=== PATIENT | female | born 1950 | race Caucasian/White ===

== ENCOUNTER 2017-01-10 09:26 | Emergency (ER) | payer OTHER ==
[2017-01-10 09:38] VITALS: RESP 18; TEMP 97.9
[2017-01-10] MEDS ORDERED: TDAP ADULT 0.5 ML INJ (BOOSTRIX) IM ONE (10:00)
[2017-01-10 10:28] VITALS: PULSE 82
--- NOTE | 2017-01-10 10:54 | EDPHY ---
H & P Stated Complaint: mechanical fall, head laceration Time Seen by Provider: 01/10/17 09:51 HPI/ROS: CHIEF COMPLAINT: scalp laceration HISTORY OF PRESENT ILLNESS: 66-year-old female presents emergency department with a laceration to the back of her head. Patient was leaning on a table reaching up cleaning the top of the Fridge when she tripped and fell backwards onto the concrete. She denies loss of consciousness, remembers the entire accident, denies neck pain. Patient reports a mild headache where the laceration is, mild nausea. She reports feeling foggy. She denies vomiting, no confusion, no blurred vision. Tetanus is not up-to-date. Patient takes blood pressure medication and a baby aspirin daily, she takes no other anti coagulant. Daughter at bedside reports she is acting appropriate. REVIEW OF SYSTEMS: A comprehensive 10 point review of systems is otherwise negative aside from elements mentioned in the history of present illness. Source: Patient Exam Limitations: No limitations - Personal History Current Tetanus/Diphtheria Vaccine: No Current Tetanus Diphtheria and Acellular Pertussis (TDAP): No - Medical/Surgical History Hx Asthma: No Hx Chronic Respiratory Disease: No Hx Diabetes: No Hx Cardiac Disease: No Hx Renal Disease: No Hx Cirrhosis: No Hx Alcoholism: No Hx HIV/AIDS: No Hx Splenectomy or Spleen Trauma: No Other PMH: HTN, Hyperlipidemia - Social History Smoking Status: Former smoker - Physical Exam Exam: Physical Exam Gen: Alert and Oriented, NAD HEENT: PERRL, moist mucous membranes NECK: no meningismus CV: regular rate and regular rhythm PULM: CTAB, no wheezes ABDOMEN: soft, non tender to palpation, BS present BACK: No CVA tenderness NEURO: Neurologically grossly intact, normal cerebellar exam, normal finger- nose, normal [id number], normal gait. EXTREMITIES: normal appearing SKIN: 3 cm superficial laceration to posterior occiput PSYCH: answers questions appropriately. Constitutional: Initial Vital Signs Temperature (C) 36.6 C 01/10/17 09:36 Heart Rate 89 01/10/17 09:36 Respiratory Rate 18 01/10/17 09:36 Blood Pressure 133/83 H 01/10/17 09:36 O2 Sat (%) 88 L 01/10/17 09:36 O2 Delivery Mode Room Air O2 (L/minute) 2 Allergies/Adverse Reactions: No Known Allergies Allergy (Unverified 01/10/17 09:36) Home Medications: Medication Instructions Recorded Lipitor 01/10/17 Medical Decision Making Procedures: Procedure: Laceration repair. Verbal consent was obtained from the patient. The 3 cm laceration on the scalp was anesthetized using 1% lidocaine with epinephrine mixed with 0.5% bupivacaine with epinephrine. The wound was carefully irrigated by the emergency department clinical technician. Next, the wound was prepped and draped in sterile fashion and explored to its base with a gloved finger. There were no deep structures involved. No vascular injury was identified. No foreign bodies were identified. The wound was repaired with 7. Bryon. The wound repair was simple. The procedure was performed by myself. Tetanus and antibiotic status were addressed. ED Course/Re-evaluation: This patient presents after a minor head injury with mild headache, no amnesia or LOC.] Neurologic exam normal. No indication for neuro imaging. CHI precautions given. Differential Diagnosis: The differential diagnosis for the patient's head injury included but was not limited to concussion, skull fracture, intra-parenchymal contusion, subarachnoid , subdural and epidural hematoma. - Data Points Medications Given: Discontinued Medications Diphtheria/Tetanus/Acell Pertussis (Boostrix) 0.5 ml IM .ONCE ONE Stop: 01/10/17 10:01 Last Admin: 01/10/17 10:04 Dose: 0.5 ml Departure - Departure Disposition: Home, Routine, Self-Care Clinical Impression: Occipital scalp laceration Qualifiers: Encounter type: initial encounter Qualified Code(s): S01.01XA - Laceration without foreign body of scalp, initial encounter Minor head injury without loss of consciousness Qualifiers: Encounter type: initial encounter Qualified Code(s): S09.90XA - Unspecified injury of head, initial encounter Concussion Qualifiers: Encounter type: initial encounter Loss of consciousness presence/duration: without LOC Qualified Code(s): S06.0X0A - Concussion without loss of consciousness, initial encounter Condition: Good Instructions: Laceration (ED), Concussion (ED), Head Injury (ED) Additional Instructions: Return to the emergency department in 5 days for staple removal, return sooner for any forceful vomiting, confusion, unsteady gait, seizure-like activity, severe headache, any new symptoms or concerns. Follow-up with your primary care doctor as scheduled in 2 days. Follow up with the concussion specialist for any continued concussion symptoms lasting more than 2 days such as headache , nausea, feeling foggy, difficulty concentrating. Referrals: Diana Chairez MD [Medical Doctor] - As per Instructions (concussion specialist)
[2017-01-10 11:08] VITALS: BP 117/68; O2SAT 92
== END 2017-01-15 11:17 | disposition home or self-care (01) ==
LOC: EDUNIT#
PROC: 0HQ0XZZ Repair Scalp Skin, External Approach (ICD-10-PCS; principal; 2017-01-10)
DX: S01.01XA Laceration without foreign body of scalp, initial encounter (principal); S06.0X0A Concussion without loss of consciousness, initial encounter; I10 Essential (primary) hypertension; Z23 Encounter for immunization; Z87.891 Personal history of nicotine dependence; W01.0XXA Fall on same level from slipping, tripping and stumbling without subsequent striking against object, initial encounter

== ENCOUNTER → 2017-01-26 | Outpatient (CLI) | payer OTHER | LOC: BRMIMAGING 15:05 | PROVIDERS: ATTEND Physician Assistant Medical | DX: Z12.31 Encounter for screening mammogram for malignant neoplasm of breast (principal); Z80.3 Family history of malignant neoplasm of breast | CPT/HCPCS: G0202 ==

== ENCOUNTER → 2018-01-31 | Outpatient (CLI) | payer OTHER | LOC: BRMIMAGING 14:42 | PROVIDERS: ATTEND Physician Assistant Medical | DX: Z12.31 Encounter for screening mammogram for malignant neoplasm of breast (principal); Z80.3 Family history of malignant neoplasm of breast ==